=== PATIENT | female | born 1990 | race Caucasian/White ===

== ENCOUNTER 2019-03-26 13:59 | Outpatient (CLI) | payer BC, SELFPAY ==
[2019-03-26 15:06] LABS: Estmated Average Glucose 108; Hemoglobin A1C 5.4 % (4.0-6.0)
== END 2019-03-26 14:00 | disposition home or self-care (01) ==
PROVIDERS: Visit Provider Obstetrics & Gynecology Reproductive Endocrinology
DX: E28.2 Polycystic ovarian syndrome (principal)
CPT/HCPCS: 36415; 83036

== ENCOUNTER 2019-08-28 10:42 | Outpatient (CLI) | payer BC, SELFPAY | END 2019-08-28 10:43 | disposition home or self-care (01) | LOC: LAB 10:46 | PROVIDERS: Visit Provider Obstetrics & Gynecology Reproductive Endocrinology | DX: Z31.83 Encounter for assisted reproductive fertility procedure cycle (principal) | CPT/HCPCS: 36415; 84702 ==

== ENCOUNTER 2019-11-22 09:12 | Outpatient (CLI) | payer BC, SELFPAY | END 2019-11-22 09:13 | disposition home or self-care (01) | LOC: LAB 09:14 | PROVIDERS: Visit Provider Obstetrics & Gynecology Reproductive Endocrinology | DX: Z31.83 Encounter for assisted reproductive fertility procedure cycle (principal) | CPT/HCPCS: 36415; 84702 ==

== ENCOUNTER 2019-11-30 08:17 | Outpatient (CLI) | payer BC, SELFPAY | END 2019-11-30 08:18 | disposition home or self-care (01) | LOC: LAB 08:23 | PROVIDERS: Visit Provider Obstetrics & Gynecology Reproductive Endocrinology | DX: O09.819 Supervision of pregnancy resulting from assisted reproductive technology, unspecified trimester (principal); Z01.83 Encounter for blood typing | CPT/HCPCS: 36415; 84702; 86850; 86900 ==

== ENCOUNTER 2019-12-03 12:08 | Emergency (ER) | payer BC, SELFPAY ==
--- NOTE | 2019-12-03 12:11 | USR_ITS ---
PROCEDURE INFORMATION: Exam: US First Trimester, Transabdominal and US , Transvaginal Exam date and time: 12/03/2019 12:55 PM Age: 29 years old Clinical indication: Pain; Other: Cramping; Gestational age or lmp: Lmp 8-4-20; TECHNIQUE: Imaging protocol: Real-time transabdominal obstetrical ultrasound of the maternal pelvis and a first trimester , less than 14 weeks 0 days, with image documentation. Transvaginal imaging was used for better evaluation of the fetus and adnexa. COMPARISON: US pelvic with transvaginal 08/30/2016 11:53 AM FINDINGS: Gestation: A 6.7 mm gestational sac is identified in the upper endometrial cavity by transvaginal imaging. 3.6 mm yolk sac. No embryo identified. Embryonic/ heart rate: Not identified. BIOMETRY: Gestational age (AUA): 5 weeks 4 days. Mean sac diameter: 5 weeks 4 days. MATERNAL: Uterus: Uterus 8.6 x 4.9 x 5.5 cm transabdominally. No mural mass. Cervix: Small uterine cervical nabothian cysts. Right adnexa: The right ovary is not identified by transabdominal imaging. The right ovary measures 2.5 x 2.6 x 4.3 cm transvaginally. No mass or cyst. No color Doppler abnormality. Left adnexa: The left ovary is not identified by transabdominal imaging. The left ovary measures 2.2 x 3.9 x 2.6 cm transvaginally. No mass or cyst. No color Doppler abnormality. Intraperitoneal space: No intraperitoneal free fluid. US/US OB <=14 wk fetus w transvag IMPRESSION: Single intrauterine gestational sac. No embryo or intrauterine cardiac activity identified likely due to early . One-week follow-up recommended to assess viability.
[2019-12-03 12:13] VITALS: BP 164/101; PULSE 87; RESP 18; TEMP 37.2; O2SAT 100; BMI 42.0
--- NOTE | 2019-12-03 12:15 | ED_ITS ---
HPI - Female Genitourinary General: Chief complaint: Urogenital-Female Stated complaint: 6 weeks preg/bleeding Time Seen by Provider: 12/03/19 12:10 Source: patient Mode of arrival: ambulatory Limitations: no limitations History of Present Illness: HPI Narrative: Trent is a nice 29-year-old female who comes in complaining of cramping and bleeding vaginally. Patient is believed to be about 12 weeks by dates. This has been progressing normally according to her. It is her first . Today though she developed cramping and has had bright red blood with some small clots. The cramping is intermittent. Is unaware of anything that makes her symptoms better or worse. Patient denies any syncope or near syncope. She denies any fevers or chills. Denies any urinary frequency, urgency or dysuria. Patient denies any other vaginal discharge other than the bleeding that started today. She denies any flank pain, back pain or abdominal pain in the upper part of her abdomen. Patient is never been before is never had symptoms like this before. She is unaware of anything that makes her symptoms better or worse. Associated symptoms: Reports abdominal pain and vaginal bleeding; Deny headache(s), nausea or syncope Review of Systems Const: Denies: fever(s), chills, body aches, fatigue, malaise or diaphoresis Eyes: Denies: change in vision, blurry vision, photophobia, eye discomfort, eye discharge, eye redness or yellow eyes ENMT: Denies: throat pain, odynophagia, hoarseness, swelling of lips/tongue, ear or mastoid pain, ear discharge, change in hearing or nasal discharge Card: Denies: chest pain, palpitations, irregular heart rhythm, edema, lightheadedness, syncope, pre-syncope, dyspnea on exertion or orthopnea Resp: Denies: dyspnea, productive cough, non-productive cough, wheezing, hemoptysis or chest congestion GI: Reports: abdominal pain; Denies: nausea, vomiting, hematemesis, coffee ground emesis, heartburn, diarrhea, constipation, GI cramping, hematochezia or melena : Reports: vaginal bleeding; Denies: flank pain, dysuria, urinary frequency, urinary urgency or hematuria Musc: Denies: neck pain, back pain, extremity pain, extremity swelling, joint pain, joint swelling, joint redness, joint warmth or joint stiffness Skin/Breast: Denies: rash, pruritus, erythema, skin pain or skin tenderness Neuro: Denies: headache(s), numbness in extremities, weakness in extremities, sensory changes, lack of coordination, difficulty walking, dizziness, vertigo, confusion, Slurred speech present or seizure-like activity Bill/Lymph: Denies: easy bruising, easy bleeding, petechiae, purpura or enlarged lymph nodes All/Imm: Denies: urticaria, throat swelling, tongue swelling, facial swelling or acute wheezing PFSH ED PFSH: Medical History (Updated 12/03/19 @ 14:25 by Indy Zaman) No pertinent past medical history Surgical History (Updated 12/03/19 @ 12:18 by Indy Zaman) No pertinent past surgical history Social History (Updated 05/09/19 @ 09:48 by Sarah Joshi LPN) Smoking and tobacco status: never smoked Alcohol intake: never Physical Exam Const: COMMON NORMALS: no acute distress, patient oriented x3, no limitations and alert GENERAL APPEARANCE: cooperative HENMT: COMMON NORMALS: normocephalic, atraumatic, external ears normal, EAC's normal and Normal external nose present HEAD & SCALP: normal to inspection, normocephalic and atraumatic FACE & SINUS: normal facial exam and face symmetric NOSE: Normal external nose present and Normal nares present EXTERNAL EAR: Yes external ears normal EXTERNAL AUDITORY CANAL: EAC's normal MOUTH: Normal oral and palatal mucosa present, lip normal and tongue normal Eye: COMMON NORMALS: Equal, round and reactive pupils present and conjunctivae normal GENERAL EYE: appearance normal, both eyes and all related structures ALIGNMENT: Yes alignment normal PERIORBITAL: periorbital findings normal EYELID: eyelids normal CONJUNCTIVA: Yes conjunctivae normal SCLERA: sclerae normal PUPIL: Yes Equal, round and reactive pupils present Neck/C-Spine: COMMON NORMALS: full ROM, no lymphadenopathy, supple, no meningeal signs and no JVD GENERAL: Yes normal visual inspection and Yes trachea midline Chest: COMMONS NORMALS: normal inspection of the chest and normal palpation of entire chest wall Resp: COMMON NORMALS: normal respiratory effort, No retractions, No use of accessory muscles and clear to auscultation bilaterally EFFORT & INSPECTION: Yes able to speak in complete sentences and Yes symmetric chest movement AUSCULTATION: clear to auscultation bilaterally, no crackles, no rales, no rhonchi and no wheezes Cardio: COMMON NORMALS: no JVD, regular rate, regular rhythm, S1 normal heart sound present and S2 normal heart sound present RATE: regular rate RHYTHM: regular rhythm HEART SOUNDS: S1 normal heart sound present, S2 normal heart sound present, no click, no gallops, no murmurs and no rubs GI: COMMON NORMALS: Soft to palpation and No hepatosplenomegaly present PALPATION: Yes Soft to palpation, No Tenderness to palpation present (GI), No Guarding due to palpation present (GI), No Rigid due to palpation, Yes No hepatosplenomegaly present, No Hernia present, No Palpable mass present and No Pulsatile mass present : COMMON NORMALS: Yes no CVA tenderness and Yes normal bimanual exam BLADDER/KIDNEY EXAM: Yes no CVA tenderness EXTERNAL FEMALE EXAM: Yes normal appearance of the urethra and No Hernia present SPECULUM EXAM - VAGINA: Yes vaginal bleeding, No tissue present in vagina, No mass, No swelling and No Vaginal discharge present SPECULUM EXAM - CERVIX: No Cervical os open, Yes Cervical os closed, No Tissue present in the cervical os and Yes Cervical bleeding BIMANUAL EXAM - VAGINA & UTERUS: Yes normal bimanual exam OB/EXTERNAL & SPECULUM: vaginal bleeding; no tissue noted in vagina and Cervical os open Back/Pelvis: COMMON NORMALS: no CVA tenderness, thoracic and lumbar spine normal to inspection, no thoracic nor lumbar tenderness and thoraco-lumbar ROM normal Extremity: COMMON NORMALS: normal to inspection, full ROM, capillary refill normal, no joint enlargement, no clubbing, cyanosis or edema and no calf tenderness Neuro: COMMON NORMALS: patient oriented x3, CN's II-XII intact bilaterally, moves all extremities, no focal motor deficits and no sensory deficits noted SENSORIUM/ORIENTATION: Yes alert MENINGEAL SIGNS: Yes no meningeal signs SPEECH: speech normal Psych: COMMON NORMALS: mental status grossly normal, Normal thought process present, cooperative, normal affect, speech normal and activity/motor behavior normal SPEECH: Yes normal speech THOUGHT PROCESS: Normal thought process present Skin: COMMON NORMALS: no rashes or lesions noted, turgor normal, no jaundice, no petechiae and no mottling GENERAL SKIN EXAM: no rashes or lesions noted and turgor normal Course Vital Signs: Vital signs: Vital Signs Temperature 98.9 F 12/03/19 12:13 Pulse Rate 76 12/03/19 14:49 Respiratory Rate 16 12/03/19 14:49 Blood Pressure 109/67 12/03/19 14:49 Pulse Oximetry 95 12/03/19 14:49 MDM - Female MDM Narrative: Medical decision making narrative: Trent is a very nice 29-year-old female who comes in with vaginal bleeding and cramping. Cervical loss is closed on exam and her ultrasound shows what is believed to be a yolk sac in the uterus. There is no sign of free fluid or ovarian problem. Patient's repeat cath urine is normal. She feels better after IV fluids. Unfortunately until the pole is seen ectopic cannot be definitively ruled out so she will need a repeat quant and ultrasound in 2 days. Patient understands this and agrees to return here if she cannot follow-up with her primary care physician. Patient understands this still could be a threatened miscarriage as well as an ectopic she agrees to return for recheck as previously discussed. Lab Data: Attestation: I reviewed the patient's lab results. Labs: Lab Results 12/03/19 12/03/19 12/03/19 Range/Units 12:13 13:00 13:00 WBC 7.1 (4.0-10.0) 10^3/ uL RBC 4.81 (4.1-5.3) 10^6/u L Hgb 10.1 L (11.5-15.3) g/dL Hct 34.2 L (37.0-47.0) % MCV 71.1 L (81-99) fL MCH 21.0 L (28.0-34.0) pg MCHC 29.5 L (30.0-36.0) g/dL RDW 19.3 H (12.1-15.1) % Plt Count 210 (130-400) 10^3/c mm MPV 9.5 (7.4-10.4) fL Neut % (Auto) 62.4 % Lymph % (Auto) 28.9 % [place] % (Auto) 6.1 % Eos % (Auto) 2.1 % Baso % (Auto) 0.4 % Neut # (Auto) 4.39 (1.8-7.7) 10^3/u L Lymph # (Auto) 2.0 (0.8-4.8) 10^3/u L [place] # (Auto) 0.4 (0.2-0.9) 10^3/u L Eos # (Auto) 0.2 (0.0-0.8) 10^3/u L Baso # (Auto) 0.0 (0.0-0.1) 10^3/u L Nucleated RBC % (a uto) 0 % Nucleated RBCs # 0.0 /100WBC Sodium (136-145) mmol/L Potassium (3.5-5.1) mmol/L Chloride (98-107) mmol/L Carbon Dioxide (22-29) mmol/L Anion Gap (5-19) BUN (6-20) mg/dL Creatinine (0.5-0.9) mg/dL GFR Calculation (90-130) mL/min Glucose (65-115) mg/dL Calculated Osmolal ity (285-295) mOsm/k g Calcium (8.5-10.5) mg/dL Magnesium (1.7-2.3) mg/dL Total Bilirubin (0.15-1.2) mg/dL AST (0-32) U/L ALT (0-33) U/L Alkaline Phosphata se (35-105) IU/L Total Protein (6.6-8.7) g/dL Albumin (3.5-5.2) g/dL Globulin (1.3-4.6) g/dL Ser , Stephen i-Qnt mIU/mL Urine Color Yellow (Yellow) Urine Appearance Hazy A (CLEAR) Urine pH 9 H (5-7) Ur Specific Gravit y 1.015 (1.005-1.030) Urine Protein Trace (Negative) Urine Glucose (UA) Norm (Normal) Urine Ketones 1+ H (Negative) Urine Blood 3+ H (Negative) Urine Nitrate Negative (Negative) Urine Bilirubin Neg (Negative) Prot Sulfosalicyli c Acd Positive (Negative) Urine Urobilinogen 1 H (Negative) mg/dL Ur Leukocyte Valentina ase Negative (Negative) Urine RBC 80-100 H (0-2) /hpf Urine WBC 0-4 H (0-5) /hpf Ur Squamous Epith Cells 10-15 H (0-5) /hpf Amorphous Sediment Not Reportable Urine Bacteria 1+ H (NONE) /hpf Urine Mucus 2+ /hpf Blood Type A Positive Rho(D) Type Positive 12/03/19 12/03/19 Range/Units 13:00 13:34 WBC (4.0-10.0) 10^3/ uL RBC (4.1-5.3) 10^6/u L Hgb (11.5-15.3) g/dL Hct (37.0-47.0) % MCV (81-99) fL MCH (28.0-34.0) pg MCHC (30.0-36.0) g/dL RDW (12.1-15.1) % Plt Count (130-400) 10^3/c mm MPV (7.4-10.4) fL Neut % (Auto) % Lymph % (Auto) % [place] % (Auto) % Eos % (Auto) % Baso % (Auto) % Neut # (Auto) (1.8-7.7) 10^3/u L Lymph # (Auto) (0.8-4.8) 10^3/u L [place] # (Auto) (0.2-0.9) 10^3/u L Eos # (Auto) (0.0-0.8) 10^3/u L Baso # (Auto) (0.0-0.1) 10^3/u L Nucleated RBC % (a uto) % Nucleated RBCs # /100WBC Sodium 138 (136-145) mmol/L Potassium 3.9 (3.5-5.1) mmol/L Chloride 102 (98-107) mmol/L Carbon Dioxide 23 (22-29) mmol/L Anion Gap 16.9 (5-19) BUN 9 (6-20) mg/dL Creatinine 0.7 (0.5-0.9) mg/dL GFR Calculation 98.3 (90-130) mL/min Glucose 119 H (65-115) mg/dL Calculated Osmolal ity 286 (285-295) mOsm/k g Calcium 8.8 (8.5-10.5) mg/dL Magnesium 2.0 (1.7-2.3) mg/dL Total Bilirubin 0.2 (0.15-1.2) mg/dL AST 16 (0-32) U/L ALT 8 (0-33) U/L Alkaline Phosphata se 24 L (35-105) IU/L Total Protein 7.6 (6.6-8.7) g/dL Albumin 4.2 (3.5-5.2) g/dL Globulin 3.4 (1.3-4.6) g/dL Ser , Stephen i-Qnt 4245.00 mIU/mL Urine Color Yellow (Yellow) Urine Appearance Clear (CLEAR) Urine pH 8 H (5-7) Ur Specific Gravit y 1.010 (1.005-1.030) Urine Protein Neg (Negative) Urine Glucose (UA) Norm (Normal) Urine Ketones Negative (Negative) Urine Blood Neg (Negative) Urine Nitrate Negative (Negative) Urine Bilirubin Neg (Negative) Prot Sulfosalicyli c Acd Negative (Negative) Urine Urobilinogen Norm (Negative) mg/dL Ur Leukocyte Valentina ase Negative (Negative) Urine RBC (0-2) /hpf Urine WBC (0-5) /hpf Ur Squamous Epith Cells (0-5) /hpf Amorphous Sediment Urine Bacteria (NONE) /hpf Urine Mucus /hpf Blood Type Rho(D) Type Imaging Data: US OB: Radiologist's impression: [place] [address] Ultrasound Report Signed Patient: Trent Lam Unit #: [id number] : 1990 Age/Sex: 29 / F ADM Date: 12/03/19 Loc: ER Room/Bed: Attending Dr: Ordering Provider/Ordering MD: Indy Zaman DO Date of Service: 12/03/19 Procedure(s): US OB <=14 wk fetus w transvag Accession Number(s): [id number] Report Number: [id number] PROCEDURE INFORMATION: Exam: US First Trimester, Transabdominal and US , Transvaginal Exam date and time: 12/03/2019 12:55 PM Age: 29 years old Clinical indication: Pain; Other: Cramping; Gestational age or lmp: Lmp 8-4-20; TECHNIQUE: Imaging protocol: Real-time transabdominal obstetrical ultrasound of the maternal pelvis and a first trimester , less than 14 weeks 0 days, with image documentation. Transvaginal imaging was used for better evaluation of the fetus and adnexa. COMPARISON: US pelvic with transvaginal 08/30/2016 11:53 AM FINDINGS: Gestation: A 6.7 mm gestational sac is identified in the upper endometrial cavity by transvaginal imaging. 3.6 mm yolk sac. No embryo identified. Embryonic/ heart rate: Not identified. BIOMETRY: Gestational age (AUA): 5 weeks 4 days. Mean sac diameter: 5 weeks 4 days. MATERNAL: Uterus: Uterus 8.6 x 4.9 x 5.5 cm transabdominally. No mural mass. Cervix: Small uterine cervical nabothian cysts. Right adnexa: The right ovary is not identified by transabdominal imaging. The right ovary measures 2.5 x 2.6 x 4.3 cm transvaginally. No mass or cyst. No color Doppler abnormality. Left adnexa: The left ovary is not identified by transabdominal imaging. The left ovary measures 2.2 x 3.9 x 2.6 cm transvaginally. No mass or cyst. No color Doppler abnormality. Intraperitoneal space: No intraperitoneal free fluid. US/US OB <=14 wk fetus w transvag IMPRESSION: Single intrauterine gestational sac. No embryo or intrauterine cardiac activity identified likely due to early . One-week follow-up recommended to assess viability. Dictated By: Jann Gunn MD Signed By: Jann Gunn MD Signed Date/Time: 12/03/19 1320 DD/ 1319 Discharge Plan Discharge Patient Disposition: Home Clinical Impression: Threatened miscarriage in early Condition: Stable Prescriptions: No Action Tylenol Extra Strength 500 mg Tablet 500 - 1,000 mg PO PRN RF: 0 progesterone 50 mg/mL Oil See Rx Instructions .ROUTE .COMPLEX RF: 0 estradiol 2 mg Tablet 2 mg PO BID RF: 0 28 mg iron- 800 mcg Tablet 1 tab PO DAILY RF: 0 Discharge Orders: Discharge Order (Routine); Ordered 12/03/19 Ordered By: Indy Zaman Referrals: Raulito Kamara MD [Primary Care Provider] - 1-3 days Discharge Diet: Advance as tolerated Discharge Activity: Increase activity as tolerated Patient Instructions: Threatened Miscarriage (ED) Activity Restrictions/Additional Instructions: Please return to the ER immediately for any of the signs or symptoms listed on your discharge instruction sheets, worsening/changing of your symptoms, you are not getting better as quickly as expected, or for ANY other cause or concerns. Follow pelvic rest until cleared by your SEALANT MIXER. No sex, no douching, no tampons, nothing intravaginal until instructed further by your OB. Return to the ER for heavier bleeding, you pass out, you nearly pass out, increased pain, or for any other cause for concern. Return to the ER in 2 days to have a repeat hormone count rechecked and possibly a repeat ultrasound. Discharge Date/Time: 12/03/19 14:50 Coding Level of Care Code ED Industrial Aerial Installer for Chg Fwd Exam Comprehensive
[2019-12-03 13:04] VITALS: BP 131/96; PULSE 80; RESP 16; O2SAT 99
[2019-12-03] MEDS: sodium chloride 0.9% 1,000 ML 999 ML IV (13:06)
[2019-12-03 13:07] LABS: Urine Appearance Hazy (CLEAR); Urine Color Yellow (Yellow); pH Urine 9 (5-7)
[2019-12-03 13:09] LABS: Bilirubin Urine Neg (Negative); Blood Urine 3+ (Negative); Glucose Urine UA Norm (Normal); Ketones Urine 1+ (Negative); Nitrate Urine Negative (Negative); Protein Urine Trace (Negative); Specific Gravity, Urine 1.015 (1.005-1.030)
[2019-12-03 13:10] LABS: Leukocyte Esterase Urine Negative (Negative); Sulfosalicylic Acid Urine Positive (Negative); Urobilinogen Urine 1 mg/dL (Negative)
[2019-12-03 13:12] LABS: Add Urine Culture? No; Bacteria Urine 1+ /hpf; Mucus Urine 2+ /hpf; RBC Urine 80-100 /hpf (0-2); WBC Urine 0-4 /hpf (0-5)
[2019-12-03 13:32] LABS: Basophils % 0.4 %; Eosinophils # 0.2 10^3/uL (0.0-0.8); Eosinophils % 2.1 %; Hematocrit 34.2 % (37.0-47.0); Hemoglobin 10.1 g/dL (11.5-15.3); Lymphocytes % 28.9 %; Mean Corpuscular HGB Conc 29.5 g/dL (30.0-36.0); Mean Corpuscular Volume 71.1 fL (81-99); Mean Platelet Volume 9.5 fL (7.4-10.4); Monocytes # 0.4 10^3/uL (0.2-0.9); Monocytes % 6.1 %; Neutrophils # 4.39 10^3/uL (1.8-7.7); Neutrophils % 62.4 %; Nucleated Red Blood Cells % 0 %; Platelet Count 210 10^3/cmm (130-400); Red Blood Count 4.81 10^6/uL (4.1-5.3); Red Cell Distribution Width 19.3 % (12.1-15.1); White Blood Count 7.1 10^3/uL (4.0-10.0)
[2019-12-03 13:44] LABS: Alanine Aminotransferase 8 U/L (0-33); Albumin Level 4.2 g/dL (3.5-5.2); Alkaline Phosphatase 24 IU/L (35-105); Anion Gap 16.9 (5-19); Aspartate Amino Transferase 16 U/L (0-32); Blood Urea Nitrogen 9 mg/dL (6-20); Calcium 8.8 mg/dL (8.5-10.5); Carbon Dioxide 23 mmol/L (22-29); Chloride 102 mmol/L (98-107); Globulin 3.4 g/dL (1.3-4.6); Glomerular Filtration Rate 98.3 mL/min (90-130); Glucose 119 mg/dL (65-115); Osmolality Calculated 286 mOsm/kg (285-295); Potassium 3.9 mmol/L (3.5-5.1); Sodium 138 mmol/L (136-145); Total Bilirubin 0.2 mg/dL (0.15-1.2); Total Protein 7.6 g/dL (6.6-8.7)
[2019-12-03 13:50] LABS: Add Urine Microscopic? NO
[2019-12-03 14:12] LABS: Urine Appearance Clear (CLEAR); Urine Color Yellow (Yellow)
[2019-12-03 14:13] LABS: Bilirubin Urine Neg (Negative); Blood Urine Neg (Negative); Glucose Urine UA Norm (Normal); Ketones Urine Negative (Negative); Leukocyte Esterase Urine Negative (Negative); Nitrate Urine Negative (Negative); Protein Urine Neg (Negative); Sulfosalicylic Acid Urine Negative (Negative); Urobilinogen Urine Norm (Negative); pH Urine 8 (5-7)
[2019-12-03 14:49] VITALS: BP 109/67; PULSE 76; RESP 16; O2SAT 95
== END 2019-12-03 14:50 | disposition home or self-care (01) ==
PROVIDERS: Emergency Provider Emergency Medicine; PCP Family Medicine
DX: O20.0 Threatened abortion (principal); Z3A.01 Less than 8 weeks gestation of pregnancy
CPT/HCPCS: 12345; 76801; 76817; 80053; 81001; 81003; 83735; 84702; 85025; 86900; 87210; 87491; 87591; 96360; 99283; J7030

== ENCOUNTER 2020-01-11 15:54 | Outpatient (CLI) | payer BC, SELFPAY ==
--- NOTE | 2020-01-11 | US_ITS ---
WS: [id number] Transvaginal obstetrical ultrasound. HISTORY: No heart tones. COMPARISON: 12/03/2019. Anteverted uterus. There is a large fluid collection within the endometrial canal. Fluid collection h as increased in size since the prior study of 12/03/2019 but no development of a pole or cardiac activity. Mean sac diameter of near 2.4 cm. This would correspond to a gestation of 7 weeks. No feta l pole or yolk sac. No cardiac activity. There is no free fluid. The RIGHT ovary is poorly visualized but does appear to be enlarged. US/US OB lmt with transvaginal IMPRESSION: 1. No intrauterine crown-rump like or yolk sac. 2. Findings are most consistent with a blighted ovum.
== END 2020-01-11 15:55 | disposition home or self-care (01) ==
LOC: RAD 16:02
PROVIDERS: PCP Family Medicine; Visit Provider Family Medicine
DX: O36.8310 Maternal care for abnormalities of the fetal heart rate or rhythm, first trimester, not applicable or unspecified (principal)
CPT/HCPCS: 76815; 76817

== ENCOUNTER 2020-01-24 13:26 | Outpatient (CLI) | payer BC, SELFPAY ==
[2020-01-24 19:40] LABS: HCG Quantitative 68.46 mIU/mL
== END 2020-01-24 13:27 | disposition home or self-care (01) ==
LOC: LAB 13:30
PROVIDERS: PCP Family Medicine; Visit Provider Obstetrics & Gynecology Reproductive Endocrinology
DX: O26.90 Pregnancy related conditions, unspecified, unspecified trimester (principal)
CPT/HCPCS: 84702

== ENCOUNTER 2020-04-23 12:55 | Outpatient (CLI) | payer BC, SELFPAY | END 2020-04-23 12:56 | disposition home or self-care (01) | LOC: LAB 12:58 | PROVIDERS: PCP Family Medicine; Visit Provider Obstetrics & Gynecology Reproductive Endocrinology | DX: Z32.00 Encounter for pregnancy test, result unknown (principal) | CPT/HCPCS: 36415; 84702 ==

== ENCOUNTER → 2020-05-30 12:09 | Outpatient (BNVA) | payer BC, SELFPAY | PROVIDERS: Visit Provider Emergency Medicine | DX: J02.8 Acute pharyngitis due to other specified organisms (principal); B97.89 Other viral agents as the cause of diseases classified elsewhere; R05 Cough | CPT/HCPCS: 87071; 87880 ==

== ENCOUNTER 2020-08-05 08:07 | Outpatient (CLI) | payer BC, SELFPAY | END 2020-08-05 08:08 | disposition home or self-care (01) | PROVIDERS: Visit Provider Obstetrics & Gynecology Reproductive Endocrinology | DX: Z31.83 Encounter for assisted reproductive fertility procedure cycle (principal) | CPT/HCPCS: 36415; 84702 ==

== ENCOUNTER 2020-08-13 07:39 | Outpatient (CLI) | payer BC, SELFPAY | END 2020-08-13 07:40 | disposition home or self-care (01) | LOC: LAB 07:46 | PROVIDERS: Visit Provider Obstetrics & Gynecology Reproductive Endocrinology | DX: Z31.83 Encounter for assisted reproductive fertility procedure cycle (principal) | CPT/HCPCS: 36415; 84702; 86850; 86900 ==

== ENCOUNTER 2020-08-23 16:27 | Outpatient (CLI) | payer BC, SELFPAY ==
[2020-08-23 17:18] LABS: HCG Quantitative 10.99 mIU/mL
== END 2020-08-23 16:28 | disposition home or self-care (01) ==
PROVIDERS: Visit Provider Obstetrics & Gynecology Reproductive Endocrinology
DX: O26.91 Pregnancy related conditions, unspecified, first trimester (principal)
CPT/HCPCS: 84702

== ENCOUNTER 2020-09-02 10:48 | Outpatient (CLI) | payer BC, SELFPAY | END 2020-09-02 10:49 | disposition home or self-care (01) | PROVIDERS: Visit Provider Obstetrics & Gynecology Reproductive Endocrinology | DX: O26.91 Pregnancy related conditions, unspecified, first trimester (principal) | CPT/HCPCS: 36415; 84702 ==

== ENCOUNTER 2020-09-08 07:42 | Outpatient (CLI) | payer BC, SELFPAY ==
[2020-09-08 09:27] LABS: Thyroid Stimulating Hormone 1.57 uIU/mL (0.27-4.20)
[2020-09-08 10:21] LABS: Estmated Average Glucose 94; Hemoglobin A1C 4.9 % (4.0-6.0)
[2020-09-11 03:58] LABS: Beta 2 Glycoprotein IGA 2.8 U/mL (<20.0); Beta 2 Glycoprotein IGG <2.0 U/mL (<20.0); Beta 2 Glycoprotein IGM <2.0 U/mL (<20.0); CARDIOLIPIN AB (IGM) <2.0 MPL-U/mL (<20.0)
[2020-09-12 05:42] LABS: LA-Interp Not Indicated; PTT-LA 34 sec (<=40); Prothrombin Time 43 sec (<=45)
== END 2020-09-08 07:43 | disposition home or self-care (01) ==
PROVIDERS: Visit Provider Obstetrics & Gynecology Reproductive Endocrinology
DX: N96 Recurrent pregnancy loss (principal)
CPT/HCPCS: 36415; 83036; 84443; 85613; 85730; 86146; 88262

== ENCOUNTER 2020-09-24 17:04 | Outpatient (CLI) | payer BC, SELFPAY | END 2020-09-24 17:05 | disposition home or self-care (01) | PROVIDERS: Visit Provider Obstetrics & Gynecology Reproductive Endocrinology | DX: N96 Recurrent pregnancy loss (principal) | CPT/HCPCS: 36415; 88262 ==

== ENCOUNTER 2020-11-06 10:26 | Outpatient (CLI) | payer BC, SELFPAY ==
[2020-11-06 10:42] VITALS: BP 125/82; PULSE 113; RESP 18; TEMP 37.3; O2SAT 96; BMI 39.4
[2020-11-06 11:25] VITALS: BP 118/73; PULSE 111; RESP 18; TEMP 38.7; O2SAT 98
[2020-11-06 12:16] VITALS: BP 126/82; PULSE 117; RESP 18; TEMP 38.1; O2SAT 99
== END 2020-11-06 10:27 | disposition home or self-care (01) ==
LOC: OPS 10:30
PROVIDERS: PCP Family Medicine; Visit Provider Nurse Practitioner
DX: U07.1 COVID-19 (principal)
CPT/HCPCS: 96365

== ENCOUNTER → 2021-04-06 11:57 | Outpatient (BNVA) | payer BC, SELFPAY | PROVIDERS: Visit Provider Family Medicine | DX: J06.9 Acute upper respiratory infection, unspecified (principal); Z20.822 Contact with and (suspected) exposure to COVID-19 | CPT/HCPCS: 87400; 87635 ==

== ENCOUNTER → 2021-12-21 11:26 | Outpatient (BNVA) | payer BC, SELFPAY | PROVIDERS: Visit Provider Nurse Practitioner | DX: J02.0 Streptococcal pharyngitis | CPT/HCPCS: 87880 ==

== ENCOUNTER → 2023-03-22 10:30 | Outpatient (BNVA) | payer BC, SELFPAY | PROVIDERS: Visit Provider Obstetrics & Gynecology | DX: Z31.41 Encounter for fertility testing (principal) | CPT/HCPCS: 80053; 83036 ==

== ENCOUNTER 2023-07-12 15:26 | Emergency (ER) | payer BC, SELFPAY ==
[2023-07-12 16:10] VITALS: TEMP 36.8; BMI 42.0
[2023-07-12 16:14] VITALS: BP 149/87; RESP 18; O2SAT 97
--- NOTE | 2023-07-12 16:27 | USR_ITS ---
PROCEDURE INFORMATION: Exam: US Pelvis, Transvaginal Exam date and time: 07/12/2023 4:36 PM Age: 32 years old Clinical indication: Pelvic pain; Additional info: L pelvic pain LABS AND CLINICAL REPORTS: Last menstrual period start date: Unknown TECHNIQUE: Imaging protocol: Real-time transvaginal pelvic ultrasound with image documentation. Transvaginal imaging was used for better evaluation of the endometrium, adnexa, and/or cervix. COMPARISON: US OB lmt with transvaginal 01/11/2020 4:30 PM FINDINGS: Uterus: The uterus measures 8.8 x 4.8 x 3.6 cm is unremarkable in appearance. Endometrial stripe measures up to 1.6 cm in thickness. Cervix: Nabothian cyst is identified measuring up to 1.5 x 2.1 cm. Right ovary/adnexa: The right ovary measures 4.5 x 2.0 cm in size and is unremarkable. Left ovary/adnexa: The left ovary measures 3.6 x 2.8 x 2.8 cm and is unremarkable in appearance. Intraperitoneal space: No free fluid in the pelvis. US/US transvaginal [id number] IMPRESSION: Unremarkable uterus and ovaries.
--- NOTE | 2023-07-12 16:28 | ED_ITS ---
Documented by User: HANNAH Brito 07/12/23 16:32 HPI - Abdominal Pain 2 General: Chief Complaint: Abdominal Pain Stated Complaint: left side pelvic pain Time Seen by Provider: 07/12/23 15:55 Source: patient Mode of arrival: ambulatory Limitations: no limitations History of Present Illness: Patient is a 32-year-old female presents to ED today with complaint of left lower abdominal/pelvic pain. Patient states she woke up this morning and noticed pain but it seemed to be bearable. She states she got herself ready for work and drove to [place] and pain seemed to improve however it abruptly returned while she was at work causing her to leave. Patient states she has intermittent nausea and lightheadedness with the discomfort. Patient states she does have PCOS. Her and her are struggling with infertility. They have tried for years and have never had a on their own. They have had IUI and currently undergoing IVF-have had two failed rounds thus far. She is not having any vaginal bleeding. She has not noticed any urinary symptoms. She has chronic intermittent sciatica back pain. MD elicited complaint: abdominal pain (pelvic pain) Pertinent past history: other (PCOS) Onset (ago): hour(s) Pain Consistency: constant Location: LLQ and Pelvis Severity: severe Quality: stabbing and sharp Radiation: none Migration to: no migration Exacerbating factors: other (sitting up) Relieving factors: nothing Associated Symptoms: Reports no associated symptoms and nausea; Denies change in bowel habits, chills, dysuria, fever(s) and vomiting Related Data: Patient : No Review of Systems 2 Const: Denies: fever(s), chills, body aches, fatigue or malaise Card: Denies: chest pain Resp: Denies: dyspnea GI: Reports: abdominal pain and nausea; Denies: vomiting or change in bowel habits : Reports: pelvic pain; Denies: flank pain, difficulty voiding, dysuria, urinary frequency, urinary urgency, urinary hesitancy or vaginal bleeding Musc: Denies: back pain Skin/Breast: Denies: rash PFSH ED 2 PFSH: Medical History No pertinent past medical history Surgical History No pertinent past surgical history Social History Smoking and tobacco/nicotine status: never used tobacco/nicotine Alcohol intake: never Substance/Drug Use: never Physical Exam 2 Const: COMMON NORMALS: patient oriented x3, no limitations, alert and well nourished GENERAL APPEARANCE: cooperative and in distress (appears uncomfortable) NUTRITIONAL APPEARANCE: obese morbidly obese (BMI is 42.1) ORIENTATION/CONSCIOUSNESS: Yes awake, Yes oriented to person, Yes oriented to place and Yes oriented to time Eye: COMMON NORMALS: no scleral icterus Resp: COMMON NORMALS: normal respiratory effort and clear to auscultation bilaterally AUSCULTATION: clear to auscultation bilaterally Cardio: COMMON NORMALS: regular rate and regular rhythm RATE: regular rate RHYTHM: regular rhythm GI: COMMON NORMALS: Normal to inspection, nondistended, normoactive bowel sounds present, Soft to palpation, No hepatosplenomegaly present and no masses INSPECTION: Yes normal to inspection AUSCULTATION: Yes normoactive bowel sounds PALPATION: Yes Soft to palpation, Yes Tenderness to palpation present (GI) (tenderness lower LLQ abdomen vs L pelvis; pain seems to be more pelvic), Yes Guarding due to palpation present (GI), No Rigid due to palpation and Yes No hepatosplenomegaly present : COMMON NORMALS: Yes no CVA tenderness BLADDER/KIDNEY EXAM: Yes no CVA tenderness Back/Pelvis: COMMON NORMALS: no CVA tenderness, thoracic and lumbar spine normal to inspection and no thoracic nor lumbar tenderness Extremity: GENERAL: Yes normal exam except as noted Neuro: GIOVANNI COMA SCALE: document GCS findings Giovanni coma scale eye opening: Spontaneous [place] coma scale verbal response: Orientated [place] coma scale motor response: Obey commands [place] coma scale total score: 15 COMMON NORMALS: patient oriented x3, CN's II-XII intact bilaterally, moves all extremities, no focal motor deficits and no sensory deficits noted S ENSORIUM/ORIENTATION: Yes alert, Yes oriented to person, Yes oriented to place and Yes oriented to time Skin: COMMON NORMALS: no rashes or lesions noted GENERAL SKIN EXAM: no rashes or lesions noted Course 2 Vital Signs: Vital signs: Vital Signs Temperature 98.2 F 07/12/23 16:10 Pulse Rate 84 07/12/23 18:37 Respiratory Rate 18 07/12/23 16:14 Blood Pressure 132/84 07/12/23 18:37 Pulse Oximetry 92 07/12/23 18:37 Oxygen Delivery Me thod Room Air 07/12/23 18:37 MDM - Abdominal Pain Lab Data 07/12/23 16:35 07/12/23 16:35 Labs/Radiology: Radiology Impressions Transvaginal US 07/12/23 16:27 IMPRESSION: Unremarkable uterus and ovaries. Abdomen/Pelvis CT 07/12/23 18:06 IMPRESSION: 1. No acute abdominal or pelvic pathology. 2. Diffuse low-attenuation of the liver compatible with fatty replacement. Laboratory Results WBC 9.07 10^3/uL (3.29-11.43) 07/12/23 16:35 RBC 4.67 10^6/uL (3.85-5.65) 07/12/23 16:35 Hgb 11.50 g/dL (11.27-16.99) 07/12/23 16:35 Hct 36.2 % (36-47) 07/12/23 16:35 MCV 77.5 fl (85-98) L 07/12/23 16:35 MCH 24.6 pg (27-33) L 07/12/23 16:35 MCHC 31.8 g/dL (30-55) 07/12/23 16:35 RDW 16.8 % (12.1-15.1) H 07/12/23 16:35 Plt Count 170 10^3/cmm (157-399) 07/12/23 16:35 MPV 8.6 fL (7.4-10.4) 07/12/23 16:35 Neut % (Auto) 76.4 % 07/12/23 16:35 Lymph % (Auto) 17.9 % 07/12/23 16:35 [place] % (Auto) 4.3 % 07/12/23 16:35 Eos % (Auto) 0.7 % 07/12/23 16:35 Baso % (Auto) 0.3 % 07/12/23 16:35 Neut # (Auto) 6.93 10^3/uL (1.8-7.7) 07/12/23 16:35 Lymph # (Auto) 1.6 10^3/uL (0.8-4.8) 07/12/23 16:35 [place] # (Auto) 0.4 10^3/uL (0.2-0.9) 07/12/23 16:35 Eos # (Auto) 0.1 10^3/uL (0.0-0.8) 07/12/23 16:35 Baso # (Auto) 0.0 10^3/uL (0.0-0.1) 07/12/23 16:35 Nucleated RBC % (auto) 0 % 07/12/23 16:35 Nucleated RBCs # 0.0 /100WBC 07/12/23 16:35 Sodium 141 mmol/L (136-145) 07/12/23 16:35 Potassium 3.9 mmol/L (3.5-5.1) 07/12/23 16:35 Chloride 105 mmol/L (98-107) 07/12/23 16:35 Carbon Dioxide 25 mmol/L (22-29) 07/12/23 16:35 Anion Gap 14.9 (5-19) 07/12/23 16:35 BUN 11 mg/dL (6-20) 07/12/23 16:35 Creatinine 0.6 mg/dL (0.5-0.9) 07/12/23 16:35 GFR Calculation 115.1 mL/min (90-130) 07/12/23 16:35 Glucose 117 mg/dL (65-115) H 07/12/23 16:35 Calculated Osmolality 292 mOsm/kg (285-295) 07/12/23 16:35 Calcium 8.3 mg/dL (8.5-10.5) L 07/12/23 16:35 Total Bilirubin 0.4 mg/dL (0.15-1.2) 07/12/23 16:35 AST 14 U/L (0-32) 07/12/23 16:35 ALT 6 U/L (0-33) 07/12/23 16:35 Alkaline Phosphatase 29 U/L (35-105) L 07/12/23 16:35 Total Protein 7.2 g/dL (6.6-8.7) 07/12/23 16:35 Albumin 4.2 g/dL (3.5-5.2) 07/12/23 16:35 Globulin 3.0 g/dL (1.3-4.6) 07/12/23 16:35 Lipase 22 U/L (13-60) 07/12/23 16:35 HCG, Qual Negative (Negative) 07/12/23 16:35 Urine Color Yellow (Yellow) 07/12/23 17:09 Urine Appearance Sl hazy (CLEAR) A 07/12/23 17:09 Urine pH 6 (5-7) 07/12/23 17:09 Ur Specific [place] 1.020 (1.005-1.030) 07/12/23 17:09 Urine Protein Neg (Negative) 07/12/23 17:09 Urine Glucose (UA) Norm (Normal) 07/12/23 17:09 Urine Ketones 1+ (Negative) H 07/12/23 17:09 Urine Blood 3+ (Negative) H 07/12/23 17:09 Urine Nitrate Negative (Negative) 07/12/23 17:09 Urine Bilirubin Neg (Negative) 07/12/23 17:09 Urine Urobilinogen Norm mg/dL (Negative) 07/12/23 17:09 Ur Leukocyte Esterase Negative (Negative) 07/12/23 17:09 Urine RBC 5-10 /hpf (0-2) H 07/12/23 17:09 Urine WBC 0-4 /hpf (0-5) H 07/12/23 17:09 Ur Squamous Epith Cells 5-10 /hpf (0-5) H 07/12/23 17:09 Amorphous Sediment Not Reportable 07/12/23 17:09 Urine Bacteria 1+ /hpf (NONE) H 07/12/23 17:09 Discharge Plan Discharge Patient Disposition: Home Clinical Impression: Ovarian cyst rupture Condition: Stable Prescriptions: No Action Sprintec (28) 0.25-35 mg-mcg tablet 1 tab PO QAM ferrous sulfate 27 mg iron Tablet 27 mg PO QPM 28 mg iron- 800 mcg Tablet 1 tab PO QPM Discharge Orders: Discharge ED (Routine); Ordered 07/12/23 Ordered By: Blake Bailey Referrals: Azael Oliva MD [Primary Care Provider] - Discharge Diet: Usual diet Discharge Activity: Increase activity as tolerated Patient Instructions: Ruptured Ovarian Cyst (ED) Activity Restrictions/Additional Instructions: Alternate Tylenol and ibuprofen as needed. Follow-up with primary care as needed. If your condition worsens or you develop any new or concerning symptoms, please return for reevaluation. Sign Out Sign Out Data: Patient Sign Out occurred on 07/12/23 at 17:03. Patient's care was discussed, and care was transferred from HANNAH Brito to HANNAH Jane. Coding Level of Care Code ED Director Of Retention for [facility] Fwd Documented by User: HANNAH Jane 07/12/23 19:17 HPI - Abdominal Pain 2 General: Chief Complaint: Abdominal Pain Stated Complaint: left side pelvic pain Time Seen by Provider: 07/12/23 15:55 PFSH ED 2 PFSH: Medical History No pertinent past medical history Surgical History No pertinent past surgical history Social History Smoking and tobacco/nicotine status: never used tobacco/nicotine Alcohol intake: never Substance/Drug Use: never Physical Exam 2 Neuro: GIOVANNI COMA SCALE: document GCS findings Giovanni coma scale total score: 15 Course 2 Vital Signs: Vital signs: Vital Signs Temperature 98.2 F 07/12/23 16:10 Pulse Rate 84 07/12/23 18:37 Respiratory Rate 18 07/12/23 16:14 Blood Pressure 132/84 07/12/23 18:37 Pulse Oximetry 92 07/12/23 18:37 Oxygen Delivery Or thod Room Air 07/12/23 18:37 MDM - Abdominal Pain Medical Decision Making Care of patient transferred to hi by HANNAH Brito. Patient had presented with left lower quadrant pain beginning this morning. She has history of PCOS. On arrival patient's vitals were unremarkable as she was afebrile. Her condition has remained stable throughout her ED course. Laboratory evaluation essentially unremarkable, no elevated white count or other signs of infection. Her beta hCG was negative. Transvaginal ultrasound ordered to identify for any torsion or ectopic, however this was negative. She did have some blood on urinalysis, however no indications of a urinary tract infection. Due to the blood, I ordered an abdomen CT without contrast to evaluate for stone, this was also negative. Upon questioning patient, she does note that she just finished her period. After given Zofran and morphine, she notes her pain is still present however much improved. I informed her of her negative workup, and stated that due to her history of PCOS she likely has pain from a ruptured ovarian cyst. I informed her that she can continue to alternate Tylenol and ibuprofen, and strict return precautions were given such as an increase in her pain or other systemic symptoms. I informed her to follow-up with her primary care provider early this week, to which she agrees. Otherwise she feels safe to go home. Lab Data I reviewed the patient's lab results. 07/12/23 16:35 07/12/23 16:35 Labs/Radiology: Radiology Impressions Transvaginal US 07/12/23 16:27 IMPRESSION: Unremarkable uterus and ovaries. Abdomen/Pelvis CT 07/12/23 18:06 IMPRESSION: 1. No acute abdominal or pelvic pathology. 2. Diffuse low-attenuation of the liver compatible with fatty replacement. Laboratory Results WBC 9.07 10^3/uL (3.29-11.43) 07/12/23 16:35 RBC 4.67 10^6/uL (3.85-5.65) 07/12/23 16:35 Hgb 11.50 g/dL (11.27-16.99) 07/12/23 16:35 Hct 36.2 % (36-47) 07/12/23 16:35 MCV 77.5 fl (85-98) L 07/12/23 16:35 MCH 24.6 pg (27-33) L 07/12/23 16:35 MCHC 31.8 g/dL (30-55) 07/12/23 16:35 RDW 16.8 % (12.1-15.1) H 07/12/23 16:35 Plt Count 170 10^3/cmm (157-399) 07/12/23 16:35 MPV 8.6 fL (7.4-10.4) 07/12/23 16:35 Neut % (Auto) 76.4 % 07/12/23 16:35 Lymph % (Auto) 17.9 % 07/12/23 16:35 [place] % (Auto) 4.3 % 07/12/23 16:35 Eos % (Auto) 0.7 % 07/12/23 16:35 Baso % (Auto) 0.3 % 07/12/23 16:35 Neut # (Auto) 6.93 10^3/uL (1.8-7.7) 07/12/23 16:35 Lymph # (Auto) 1.6 10^3/uL (0.8-4.8) 07/12/23 16:35 [place] # (Auto) 0.4 10^3/uL (0.2-0.9) 07/12/23 16:35 Eos # (Auto) 0.1 10^3/uL (0.0-0.8) 07/12/23 16:35 Baso # (Auto) 0.0 10^3/uL (0.0-0.1) 07/12/23 16:35 Nucleated RBC % (auto) 0 % 07/12/23 16:35 Nucleated RBCs # 0.0 /100WBC 07/12/23 16:35 Sodium 141 mmol/L (136-145) 07/12/23 16:35 Potassium 3.9 mmol/L (3.5-5.1) 07/12/23 16:35 Chloride 105 mmol/L (98-107) 07/12/23 16:35 Carbon Dioxide 25 mmol/L (22-29) 07/12/23 16:35 Anion Gap 14.9 (5-19) 07/12/23 16:35 BUN 11 mg/dL (6-20) 07/12/23 16:35 Creatinine 0.6 mg/dL (0.5-0.9) 07/12/23 16:35 GFR Calculation 115.1 mL/min (90-130) 07/12/23 16:35 Glucose 117 mg/dL (65-115) H 07/12/23 16:35 Calculated Osmolality 292 mOsm/kg (285-295) 07/12/23 16:35 Calcium 8.3 mg/dL (8.5-10.5) L 07/12/23 16:35 Total Bilirubin 0.4 mg/dL (0.15-1.2) 07/12/23 16:35 AST 14 U/L (0-32) 07/12/23 16:35 ALT 6 U/L (0-33) 07/12/23 16:35 Alkaline Phosphatase 29 U/L (35-105) L 07/12/23 16:35 Total Protein 7.2 g/dL (6.6-8.7) 07/12/23 16:35 Albumin 4.2 g/dL (3.5-5.2) 07/12/23 16:35 Globulin 3.0 g/dL (1.3-4.6) 07/12/23 16:35 Lipase 22 U/L (13-60) 07/12/23 16:35 HCG, Qual Negative (Negative) 07/12/23 16:35 Urine Color Yellow (Yellow) 07/12/23 17:09 Urine Appearance Sl hazy (CLEAR) A 07/12/23 17:09 Urine pH 6 (5-7) 07/12/23 17:09 Ur Specific [place] 1.020 (1.005-1.030) 07/12/23 17:09 Urine Protein Neg (Negative) 07/12/23 17:09 Urine Glucose (UA) Norm (Normal) 07/12/23 17:09 Urine Ketones 1+ (Negative) H 07/12/23 17:09 Urine Blood 3+ (Negative) H 07/12/23 17:09 Urine Nitrate Negative (Negative) 07/12/23 17:09 Urine Bilirubin Neg (Negative) 07/12/23 17:09 Urine Urobilinogen Norm mg/dL (Negative) 07/12/23 17:09 Ur Leukocyte Esterase Negative (Negative) 07/12/23 17:09 Urine RBC 5-10 /hpf (0-2) H 07/12/23 17:09 Urine WBC 0-4 /hpf (0-5) H 07/12/23 17:09 Ur Squamous Epith Cells 5-10 /hpf (0-5) H 07/12/23 17:09 Amorphous Sediment Not Reportable 07/12/23 17:09 Urine Bacteria 1+ /hpf (NONE) H 07/12/23 17:09 All radiology interpretation(s) finalized by discharge Discharge Plan Discharge Patient Disposition: Home Clinical Impression: Ovarian cyst rupture Condition: Stable Prescriptions: No Action Sprintec (28) 0.25-35 mg-mcg tablet 1 tab PO QAM ferrous sulfate 27 mg iron Tablet 27 mg PO QPM 28 mg iron- 800 mcg Tablet 1 tab PO QPM Discharge Orders: Discharge ED (Routine); Ordered 07/12/23 Ordered By: Blake Bailey Referrals: Azael Oliva MD [Primary Care Provider] - Discharge Diet: Usual diet Discharge Activity: Increase activity as tolerated Patient Instructions: Ruptured Ovarian Cyst (ED) Activity Restrictions/Additional Instructions: Alternate Tylenol and ibuprofen as needed. Follow-up with primary care as needed. If your condition worsens or you develop any new or concerning symptoms, please return for reevaluation. Sign Out Sign Out Data: Patient Sign Out occurred on 07/12/23 at 17:03. Patient's care was discussed, and care was transferred from HANNAH Brito to HANNAH Jane. Coding Level of Care Code ED Director Of Retention for Nini Mcneal
[2023-07-12] MEDS: ondansetron 2 mg/ML SDV 2 mL 4 MG IVP (16:39)
[2023-07-12] MEDS: morphine 4 mg/mL SDV 1 mL IVP (16:40)
[2023-07-12 16:41] LABS: Basophils % 0.3 %; Eosinophils # 0.1 10^3/uL (0.0-0.8); Eosinophils % 0.7 %; Hematocrit 36.2 % (36-47); Lymphocytes # 1.6 10^3/uL (0.8-4.8); Lymphocytes % 17.9 %; Mean Corpuscular HGB Conc 31.8 g/dL (30-55); Mean Corpuscular Hemoglobin 24.6 pg (27-33); Mean Corpuscular Volume 77.5 fl (85-98); Mean Platelet Volume 8.6 fL (7.4-10.4); Monocytes # 0.4 10^3/uL (0.2-0.9); Monocytes % 4.3 %; Neutrophils # 6.93 10^3/uL (1.8-7.7); Neutrophils % 76.4 %; Nucleated Red Blood Cells % 0 %; Platelet Count 170 10^3/cmm (157-399); Red Blood Count 4.67 10^6/uL (3.85-5.65); Red Cell Distribution Width 16.8 % (12.1-15.1); White Blood Count 9.07 10^3/uL (3.29-11.43)
[2023-07-12 16:56] LABS: HCG, Serum Qual Negative (Negative)
[2023-07-12 16:59] LABS: Alanine Aminotransferase 6 U/L (0-33); Albumin Level 4.2 g/dL (3.5-5.2); Alkaline Phosphatase 29 U/L (35-105); Anion Gap 14.9 (5-19); Aspartate Amino Transferase 14 U/L (0-32); Blood Urea Nitrogen 11 mg/dL (6-20); Calcium 8.3 mg/dL (8.5-10.5); Carbon Dioxide 25 mmol/L (22-29); Chloride 105 mmol/L (98-107); Creatinine Clr Calc Pharmacy 151.1421; Glomerular Filtration Rate 115.1 mL/min (90-130); Glucose 117 mg/dL (65-115); Lipase 22 U/L (13-60); Osmolality Calculated 292 mOsm/kg (285-295); Potassium 3.9 mmol/L (3.5-5.1); Sodium 141 mmol/L (136-145); Total Bilirubin 0.4 mg/dL (0.15-1.2); Total Protein 7.2 g/dL (6.6-8.7)
[2023-07-12 17:13] VITALS: BP 142/82; PULSE 87; O2SAT 93
[2023-07-12 18:01] LABS: Blood Urine 3+ (Negative); Glucose Urine UA Norm (Normal); Ketones Urine 1+ (Negative); Protein Urine Neg (Negative); Urine Appearance SL Hazy (CLEAR); Urine Color Yellow (Yellow); pH Urine 6 (5-7)
[2023-07-12 18:02] LABS: Add Urine Culture? No; Add Urine Microscopic? YES; Bacteria Urine 1+ /hpf; Bilirubin Urine Neg (Negative); Leukocyte Esterase Urine Negative (Negative); Nitrate Urine Negative (Negative); Urobilinogen Urine Norm (Negative); WBC Urine 0-4 /hpf (0-5)
--- NOTE | 2023-07-12 18:06 | CTR_ITS ---
PROCEDURE INFORMATION: Exam: CT Abdomen And Pelvis Without Contrast Exam date and time: 07/12/2023 6:12 PM Age: 32 years old Clinical indication: Abdominal pain; Localized; Left lower quadrant (llq); Prior surgery; Surgery date: 6+ months; Surgery type: Gb/ fertility tx 2 years ago with egg retrieval; Additional info: Llq pain/blood in urine TECHNIQUE: Imaging protocol: Computed tomography of the abdomen and pelvis without contrast. Radiation optimization: All CT scans at this facility use at least one of these dose optimization techniques: automated exposure control; mA and/or kV adjustment per patient size (includes targeted exams where dose is matched to clinical indication); or iterative reconstruction. COMPARISON: US transvaginal [id number] 07/12/2023 4:36 PM RADIATION DOSE METRICS: Total DLP (mGy-cm): 1169.59 FINDINGS: Limitations: Evaluation is limited without the use of IV and oral contrast, particularly for the evaluation of infection and malignancy. Lungs: Mild bibasilar atelectasis/scar. Liver: Diffuse low-attenuation of the liver compatible with fatty replacement. Gallbladder and bile ducts: The gallbladder is not clearly identified. Recommend correlation with surgical history. Pancreas: Pancreas is unremarkable in appearance. No ductal dilation. Spleen: The spleen is normal in size and contour. Adrenal glands: Adrenal glands are unremarkable in appearance. Kidneys and ureters: Kidneys and ureters are unremarkable in appearance. No hydronephrosis. No radio-opaque stone. Stomach and bowel: Stomach and bowel grossly unremarkable. No evidence of bowel obstruction. Appendix: Visualized portions of the appendix are unremarkable. Intraperitoneal space: No ascites. Vasculature: Unremarkable. No abdominal aortic aneurysm. Lymph nodes: No abdominal or pelvic lymphadenopathy. Urinary bladder: Nondistended bladder. Reproductive: Uterus present. Bones/joints: No acute bony abnormality. Soft tissues: Umbilical hernia containing fat. CT/CT kidney stone [id number] IMPRESSION: 1. No acute abdominal or pelvic pathology. 2. Diffuse low-attenuation of the liver compatible with fatty replacement.
[2023-07-12 18:10] VITALS: BP 134/89; PULSE 89; O2SAT 91
[2023-07-12 18:37] VITALS: BP 132/84; PULSE 84; O2SAT 92
[2023-07-12 19:28] VITALS: BP 132/84; PULSE 84; RESP 18; TEMP 36.8; O2SAT 92
== END 2023-07-12 19:30 | disposition home or self-care (01) ==
PROVIDERS: Emergency Medicine; Emergency Provider Physician Assistant; PCP Obstetrics & Gynecology
DX: N83.202 Unspecified ovarian cyst, left side (principal)
CPT/HCPCS: 74176; 76830; 80053; 81001; 83690; 84703; 85025; 96374; 96375; 99285; J2270; J2405

== ENCOUNTER 2023-11-16 09:23 | Outpatient (CLI) | payer BC, SELFPAY ==
[2023-11-16 10:48] LABS: Estradiol 292.4 pg/mL; Progesterone 9.79 ng/mL
== END 2023-11-16 09:24 | disposition home or self-care (01) ==
LOC: LAB 09:24
PROVIDERS: PCP Obstetrics & Gynecology; Visit Provider Obstetrics & Gynecology Reproductive Endocrinology
DX: Z32.00 Encounter for pregnancy test, result unknown (principal)
CPT/HCPCS: 82670; 84144; 84702

== ENCOUNTER 2023-11-23 08:29 | Outpatient (CLI) | payer BC, SELFPAY ==
[2023-11-23 09:31] LABS: Progesterone 28.93 ng/mL
== END 2023-11-23 08:30 | disposition home or self-care (01) ==
LOC: LAB 08:32
PROVIDERS: PCP Obstetrics & Gynecology; Visit Provider Obstetrics & Gynecology Reproductive Endocrinology
DX: Z32.00 Encounter for pregnancy test, result unknown (principal); N92.6 Irregular menstruation, unspecified
CPT/HCPCS: 36415; 84144; 84702

== ENCOUNTER 2023-11-25 07:59 | Outpatient (CLI) | payer BC, SELFPAY | END 2023-11-25 08:00 | disposition home or self-care (01) | LOC: LAB 08:01 | PROVIDERS: PCP Obstetrics & Gynecology; Visit Provider Obstetrics & Gynecology Reproductive Endocrinology | DX: Z32.01 Encounter for pregnancy test, result positive (principal) | CPT/HCPCS: 36415; 84702 ==

== ENCOUNTER → 2023-11-30 07:58 | Outpatient (BNVA) | payer BC, SELFPAY | PROVIDERS: PCP Obstetrics & Gynecology; Visit Provider Nurse Practitioner Women's Health | DX: N92.6 Irregular menstruation, unspecified (principal) | CPT/HCPCS: 81025 ==

== ENCOUNTER → 2023-12-03 10:04 | Outpatient (BNVA) | payer BC, SELFPAY | PROVIDERS: PCP Obstetrics & Gynecology; Visit Provider Nurse Practitioner Women's Health | DX: O20.8 Other hemorrhage in early pregnancy (principal) | CPT/HCPCS: 76817; 84702; 85025 ==

== ENCOUNTER 2023-12-07 14:32 | Outpatient (CLI) | payer BC, SELFPAY | END 2023-12-07 14:33 | disposition home or self-care (01) | LOC: RAD 14:33 | PROVIDERS: PCP Obstetrics & Gynecology; Visit Provider Nurse Practitioner Women's Health | DX: O03.4 Incomplete spontaneous abortion without complication (principal) | CPT/HCPCS: 36415; 84702 ==

== ENCOUNTER → 2023-12-13 08:00 | Outpatient (BNVA) | payer BC, SELFPAY | PROVIDERS: PCP Obstetrics & Gynecology; Visit Provider Nurse Practitioner Women's Health | DX: O03.4 Incomplete spontaneous abortion without complication (principal) | CPT/HCPCS: 84702 ==

== ENCOUNTER 2025-01-17 19:37 | Emergency (ER) | payer BC, SELFPAY ==
[2025-01-17 19:42] VITALS: BP 164/112; PULSE 89; RESP 16; TEMP 37.3; O2SAT 98; BMI 43.0
--- OUTSIDE RECORDS SUMMARY | 2025-01-17 19:46 | XMS_ITS | Clinical Summary ---
Author Organization [facility] 1 [address] [facility] Address [address] [place] [address] Phone Care Team Providers Care Coremaker Supervisor Name Role Phone Adalgisa, Suzi Matt EDDY Primary Care Provider [phone] Allergies Active Allergy Reactions Criticality Noted Date Comments Metformin Abdominal Pain Low 10/18/2024 Medications busPIRone (BUSPAR) 15 mg TabletIndication s:Situational anxiety Take 1 Tablet (15 mg) by mouth 3 times daily as needed for Anxiety. 30 Tablet 3 10/18/2024 Active FERROUS SULFATE ORAL Take 65 mg by mouth daily. Active Active Problems Problem Noted Date Diagnosed Date Situational anxiety 10/27/2024 Benign hypertension 10/27/2024 Absolute anemia 10/20/2024 History of anemia 10/18/2024 Dysmenorrhea 10/18/2024 Primary female infertility 10/15/2021 PCOS (polycystic ovarian syndrome) 05/15/2019 Resolved Problems Problem Noted Date Diagnosed Date Resolved Date Recurrent loss wit hout current 09/17/2023 10/18/2024 Irregular menses 10/15/2021 10/18/2024 Abdominal pain, acute, right upper quadrant 10/15/2021 10/18/2024 BMI 40.0-44.9, adult 10/15/2021 023 Encounters Date Type Department Care Team Description 01/02/2025 External Device Data STL ABSTRACTION Provider, Abstract 11/06/2024 9:45 AM CDT - 11/06/2024 11:59 PM CDT Hospital Encounter [facility] Ultrasound [address] [place] [phone] Edson Cannon FNP Discharge Disposition: Home or Self Care 10/31/2024 External Device Data STL ABSTRACTION Provider, Abstract 10/31/2024 External Device Data STL ABSTRACTION Provider, Abstract 10/27/2024 9:20 AM CDT Office Visit [facility] [address] [place] [address] Edson Cannon FNP Benign hypertension (Primary Dx); Other iron deficiency anemia; Situational anxiety; Dysmenorrhea 10/20/2024 Results Follow-Up [facility] [address] [place] [address] Edson Cannon FNP VITAMIN B12 AND FOLATE, IRON, TIBC, AND PERCENT SATURATION, LIPID PANEL, Additional followed-up results: 5 10/18/2024 3:20 PM CDT Office Visit [facility] [address] [place] [address] Edson Cannon FNP 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); History of anemia; Dysmenorrhea; PCOS (polycystic ovarian syndrome); Elevated blood pressure reading without diagnosis of hypertension; Situational anxiety 10/17/2024 External Device Data STL ABSTRACTION Provider, Abstract from Last 3 Months Social History Tobacco Use Types Packs/Day Years Used Date Smoking Tobacco: Never Smokeless Tobacco: Never Tobacco Cessation:Counseling Given: No Alcohol Use Standard Drinks/Week Comments Not Currently 0 (1 standard drink = 0.6 oz pur e alcohol) Comments No Sex and Gender Information Value Date Recorded Sex Assigned at Not on file Legal Sex Female 11:44 AM CDT Gender Identity Not on file Sexual Orientation Not on file Occupation Industry Job Start Date Job End Date banker Not on file Not on file Not on file Last Filed Vital Signs Vital Sign Reading Time Taken Comments Blood Pressure 158/100 10/27/2024 9:25 AM CDT Pulse 79 10/27/2024 9:24 AM CDT Temperature 36.8 C (98.3 F) 10/27/2024 9:24 AM CDT Respiratory Rate 17 10/27/2024 9:24 AM CDT Oxygen Saturation 95% 10/27/2024 9:24 AM CDT Inhaled Oxygen Concentration - - Weight 106.5 kg (234 lb 12.8 oz) 10/27/2024 9:24 AM CDT Height 157.5 cm (5' 2 ) 10/27/2024 9:24 AM CDT Body Mass Index 42.95 10/27/2024 9:24 AM CDT Plan of Treatment Upcoming Encounters Date Type Department Care Team (Late st Contact Info) Description 03/16/2025 10:40 AM ELECTRIC SIGN WIRER Office Visit [facility] [address] [place] [phone] Dayne De DO [address] [place] [phone] Health Maintenance Due Date Last Done Comments DTAP/TDAP/TD VACCINES (1 - Tdap) 2008 HEPATITIS B VACCINES (1 of 3 - 19+ 3-dose series) 2008 HPV VACCINES (1 - 3-dose SCDM series) 2016 Preventative Visit- Commercial 03/15/2024 01/25/2024 , 01/28/2022 INFLUENZA VACCINE (#1) 2024 PAP SMEAR 01/28/2025 01/28/2022, 01/28/2022 CERVICAL CANCER SCREENING 01/28/2027 HPV/Cotest (21-29) 01/28/2027 01/28/2022, 01/28/2022 HPV/Cotest (30-65) 01/28/2027 01/28/2022, 01/28/2022 Pre-Diabetes and Diabetes Screening 10/19/202710/18, 01/25/2024 Medical Devices Implanted Type Area Box Toe Cutter Device Identifier Shelf Expiration Date Model / Serial / Lot Clip Crtg Med/Lrg 1112 - Sna Implanted:Qty: 1 on 11/14/2021 by Teo aSge DO at [facility] Clip N/A: Abdomen [employer] 08/06/2026 1112 / NA / [id number] Procedures Procedure Name Priority Date/Time Associated Diagnosis Comments US PELVIC TRANSVAGINAL Routine 11/06/2024 10:42 AM CDT History of anemia Dysmenorrhea PCOS (polycystic ovarian syndrome) COMPREHENSIVE METABOLIC PANEL Routine 10/18/2024 4:13 PM CDT 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 Elevated blood pressure reading without diagnosis of hypertension CBC WITH DIFFERENTIAL Routine 10/18/2024 4:13 PM CDT 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 History of anemia Elevated blood pressure reading without diagnosis of hypertension HEMOGLOBIN A1C Routine 10/18/2024 4:13 PM CDT 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 TSH Routine 10/18/2024 4:13 PM CDT 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 Elevated blood pressure reading without diagnosis of hypertension LIPID PANEL Routine 10/18/2024 4:13 PM CDT 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 US PELVIC TRANSVAGINAL, 11/06/2024 10:42 AM Reason For Exam: See Diagnosis. Diagnosis: History of anemia; Dysmenorrhea; PCOS (polycystic ovarian syndrome). COMPARISON: None TECHNIQUE: Multiplanar real-time ultrasonography of the pelvis using alcala-scale imaging, supplemented by color Doppler as needed. FINDINGS: . Uterus: 4.2 x 6.9 x 4.8 cm. The endometrium measures 4.7 mm in thickness. The uterus is anteverted and the myometrium is slightly heterogeneous. No discrete mass. Multiple nabothian cysts are present in the cervix measuring up to 2.2 cm. . Right Ovary: 2.3 x 3.7 x 3.1 cm. The volume measures 13.7 mL and there are greater than 12 peripherally orientated follicles without dominant follicle. . Left Ovary: 2.6 x 3.7 x 3.2 cm. Volume measures 16.3 mL and there are greater than appropriately orientated follicles without dominant follicle. . Bladder: Normal . Peritoneum: No fluid in the cul-de-sac. +++++++++++++++++++++ IMPRESSION: Sonographic features consistent with polycystic ovarian syndrome. Multiple prominent nabothian cysts. Narrative Procedure Note Oliver Dean MD - 11/06/2024 IMPRESSION: Please see below. US PELVIC TRANSVAGINAL, 11/06/2024 10:42 AM Reason For Exam: See Diagnosis. Diagnosis: History of anemia; Dysmenorrhea; PCOS (polycystic ovarian syndrome). COMPARISON: None TECHNIQUE: Multiplanar real-time ultrasonography of the pelvis using alcala-scale imaging, supplemented by color Doppler as needed. FINDINGS: . Uterus: 4.2 x 6.9 x 4.8 cm. The endometrium measures 4.7 mm in thickness. The uterus is anteverted and the myometrium is slightly heterogeneous. No discrete mass. Multiple nabothian cysts are present in the cervix measuring up to 2.2 cm. . Right Ovary: 2.3 x 3.7 x 3.1 cm. The volume measures 13.7 mL and there are greater than 12 peripherally orientated follicles without dominant follicle. . Left Ovary: 2.6 x 3.7 x 3.2 cm. Volume measures 16.3 mL and there are greater than appropriately orientated follicles without dominant follicle. . Bladder: Normal . Peritoneum: No fluid in the cul-de-sac. +++++++++++++++++++++ IMPRESSION: Sonographic features consistent with polycystic ovarian syndrome. Multiple prominent nabothian cysts. Edson Cannon [facility] US ORDERABLES Final Resu lt * VITAMIN B12 AND FOLATE (10/18/2024 4:13 PM CDT) VITAMIN B12 328 200 - 1100 pg/mL [facility] Comment: Please Note: Although the reference range for vitamin B12 is 200-1100 pg/mL, it has been reported that between 5 and 10% of patients with values between 200 and 400 pg/mL may experience neuropsychiatric and hematologic abnormalities due to occult B12 deficiency; less than 1% of patients with values above 400 pg/mL will have symptoms. FOLATE, SERUM 7.5 ng/mL [facility] Comment: Reference Range Low: <3.4 Borderline: 3.4-5.4 Normal: >5.4 Test Performed at: [facility] [address] [place] [id number] Elyse Sood MD Blood 10/18/2024 4:13 PM CDT 10/19/2024 4:31 AM CDT Sorinkarishma Itz Cannon [facility] CHEMISTRY ORDERABLES Final Result [facility] [phone] [facility] [address] * (ABNORMAL) IRON, TIBC, AND PERCENT SATURATION (10/18/2024 4:13 PM CDT) IRON 25(L) 40 - 190 mcg/dL [facility] TIBC 433 250 - 450 mcg/dL (calc) [facility] IRON % SATURATION 6(L) 16 - 45 % (calc) [facility] Comment: Test Performed at: [facility] [address] [place] [address] Elyse Sood MD Blood 10/18/2024 4:13 PM CDT 10/19/2024 4:31 AM CDT Edson Cannon PROJECT CONTROLS SPECIALIST CHEMISTRY ORDERABLES Final Result [facility] [phone] [facility] [address] [address] * (ABNORMAL) CBC WITH DIFFERENTIAL (10/18/2024 4:13 PM CDT) WBC 5.7 3.8 - 10.8 Thousand/u L [facility] RBC 4.71 3.80 - 5.10 Million/uL [facility] HEMOGLOBIN 10.1(L) 11.7 - 15.5 g/dL [facility] HEMATOCRIT 34.7(L) 35.0 - 45.0 % [facility] MCV 73.7(L) 80.0 - 100.0 fL [facility] MCH 21.4(L) 27.0 - 33.0 pg [facility] MCHC 29.1(L) 32.0 - 36.0 g/dL [facility] Comment: For adults, a slight decrease in the calculated MCHC value (in the range of 30 to 32 g/dL) is most likely not clinically significant; however, it should be interpreted with caution in correlation with other red cell parameters and the patient's clinical condition. RDW 16.3(H) 11.0 - 15.0 % [facility] PLATELETS 199 140 - 400 Thousand/u L [facility] MPV 9.3 7.5 - 12.5 fL [facility] NEUTROPHIL ABSOLUTE 3,238 1,500 - 7,800 cells/uL [facility] LYMPHOCYTE ABSOLUTE 2,001 850 - 3,900 cells/uL [facility] MONOCYTE ABSOLUTE 371 200 - 950 cells/uL [facility] EOSINOPHIL ABSOLUTE 63 15 - 500 cells/uL [facility] BASOPHILS ABSOLUTE 29 0 - 200 cells/uL [facility] NEUTROPHIL 56.8 % [facility] LYMPHOCYTES 35.1 % [facility] MONOCYTE 6.5 % [facility] EOSINOPHILS 1.1 % [facility] BASOPHILS 0.5 % [facility] Comment: Test Performed at: [facility] [address] [facility] [place] [address] Elyse Sood MD Blood 10/18/2024 4:13 PM CDT 10/19/2024 4:31 AM CDT [facility] HEMATOLOGY ORDERABLES Asia l Result Performing Organization Address [facility] de Phone Number [facility] [phone] [facility] [id number] [place] [address] * TSH (10/18/2024 4:13 PM CDT) Pathologist [facility] TSH 1.16 mIU/L [facility] Comment: Reference Range > or = 20 Years 0.40-4.50 Ranges First trimester 0.26-2.66 Second trimester 0.55-2.73 Third trimester 0.43-2.91 Test Performed at: [facility] [address] [place] [id number] Elyse Sood MD Blood 10/18/2024 4:13 PM CDT 10/19/2024 4:31 AM CDT [facility] CHEMISTRY ORDERABLES Final Result Performing Organization Address [facility] Co de Phone Number [facility] [phone] [facility] [address] [place] [address] * HEMOGLOBIN A1C (10/18/2024 4:13 PM CDT) Pathologist [facility] HEMOGLOBIN A1C 5.4 <5.7 % [facility] Comment: For the purpose of screening for the presence of diabetes: <5.7% Consistent with the absence of diabetes 5.7-6.4% Consistent with increased risk for diabetes (prediabetes) > or =6.5% Consistent with diabetes This assay result is consistent with a decreased risk of diabetes. Currently, no consensus exists regarding use of hemoglobin A1c for diagnosis of diabetes in children. According to [place] Diabetes Association (ADA) guidelines, hemoglobin A1c <7.0% represents optimal control in non- diabetic patients. Different metrics may apply to specific patient populations. Standards of Medical Care in Diabetes(ADA). ESTIMATED AVERAGE GLUCOSE (MG/DL) 108 mg/dL [facility] ESTIMATED AVERAGE GLUCOSE (MMOL/L) 6.0 mmol/L [facility] Comment: Test Performed at: [facility] [address] [place] [address] Elyse Sood MD Blood 10/18/2024 4:13 PM CDT 10/19/2024 4:31 AM CDT Edson Cannon PROJECT CONTROLS SPECIALIST CHEMISTRY ORDERABLES Final Result [facility] [phone] [facility] [address] [place] [address] * (ABNORMAL) LIPID PANEL (10/18/2024 4:13 PM CDT) CHOLESTEROL 144 <200 mg/dL [facility] HDL 33(L) > OR = 50 mg/dL [facility] TRIGLYCERIDE 137 <150 mg/dL [facility] LDL CALCULATED 87 mg/dL (calc) [facility] Comment: Reference range: <100 Desirable range <100 mg/dL for primary prevention; <70 mg/dL for patients with CHD or diabetic patients with > or = 2 CHD risk factors. LDL-C is now calculated using the Mabel calculation, which is a validated novel method providing better accuracy than the Friedewald equation in the estimation of LDL-C. Vern BANUELOS et al. NICOLA. 2013;310(19): 5573-7857 (http://education.SportEmp.com/faq/NBF871) CHOL/HDL RATIO 4.4 <5.0 (calc) [facility] NON-HDL CHOLESTEROL 111 <130 mg/dL (calc) [facility] Comment: For patients with diabetes plus 1 major ASCVD risk factor, treating to a non-HDL-C goal of <100 mg/dL (LDL-C of <70 mg/dL) is considered a therapeutic option. Test Performed at: [facility] [address] [facility] [place] [address] Elyse Sood MD Blood 10/18/2024 4:13 PM CDT 10/19/2024 4:31 AM CDT us Sorinden[facility] Cannon PROJECT CONTROLS SPECIALIST CHEMISTRY ORDERABLES Final Result [facility] [phone] [facility] [address] [facility] [place] [address] * (ABNORMAL) COMPREHENSIVE METABOLIC PANEL (10/18/2024 4:13 PM CDT) GLUCOSE 91 65 - 99 mg/dL [facility] Comment: Fasting reference interval BUN 8 7 - 25 mg/dL [facility] CREATININE 0.68 0.50 - 0.97 mg/dL [facility] GFR 117 > OR = 60 mL/min/1. 73m2 [facility] BUN/CREAT RATIO SEE NOTE: 6 - 22 (calc) [facility] Comment: Not Reported: BUN and Creatinine are within reference range. SODIUM 143 135 - 146 mmol/L [facility] POTASSIUM 3.7 3.5 - 5.3 mmol/L [facility] CHLORIDE 107 98 - 110 mmol/L [facility] CO2 29 20 - 32 mmol/L [facility] CALCIUM 8.8 8.6 - 10.2 mg/dL [facility] TOTAL PROTEIN 7.1 6.1 - 8.1 g/dL [facility] ALBUMIN 4.3 3.6 - 5.1 g/dL [facility] GLOBULIN 2.8 1.9 - 3.7 g/dL (calc) [facility] ALBUMIN/GLOBULIN RATIO 1.5 1.0 - 2.5 (calc) [facility] BILIRUBIN TOTAL 0.4 0.2 - 1.2 mg/dL [facility] ALKALINE PHOSPHATASE 26(L) 31 - 125 U/L [facility] AST 18 10 - 30 U/L [facility] ALT 10 6 - 29 U/L [facility] Comment: Test Performed at: [facility] [address] [place] [address] Elyse Sood MD Blood 10/18/2024 4:13 PM CDT 10/19/2024 4:31 AM CDT Edson Cannon PROJECT CONTROLS SPECIALIST CHEMISTRY ORDERABLES Final Result [facility] [phone] [facility] [address] * CERV/VAG CYTO SCREEN PAP W/HPV (01/28/2022 9:03 AM ELECTRIC SIGN WIRER) CLINICAL INFORMATION [facility] Comment:None given LAST MENSTRUAL PERIOD [facility] Comment:NONE GIVEN PREV PAP: [facility] Comment:NONE GIVEN PREV BX: [facility] Comment:NONE GIVEN SOURCE [facility] Comment:ENDOCERVIX ADEQUACY: [facility] Comment: Satisfactory for evaluation. Endocervical/transformation zone component present. Age and/or menstrual status not provided PAP INTERP [facility] Comment:Negative for intraep ithelial lesion or malignancy. COMMENT (PAP TEST) [facility] Comment: This Pap test has been evaluated with computer assisted technology. SAND MILL OPERATOR CORE SAND: Yashira [facility] Comment: MVB, CT(ASCP) CT Screening Location: [place] [address] [place] [address] EXPLANATORY NOTE [facility] Comment: EXPLANATORY NOTE: The Pap is a screening test for cervical cancer. It is not a diagnostic test and is subject to false negative and false positive results. It is most reliable when a satisfactory sample, regularly obtained, is submitted with relevant clinical findings and history, and when the Pap result is evaluated along with historic and current clinical information. HPV E6/E7 Not Detected Not Detected [facility] Comment: Methodology: Machine Grainer-Mediated Amplification This assay detects E6/E7 viral messenger RNA (mRNA) from 14 high-risk HPV types (16,18,31,33,35,39,45,51,52,56,58,59,66,68). Cervical sources are required for HPV testing. If a vaginal source from a patient who has had a total hysterectomy with removal of cervix was submitted, please contact the testing laboratory for alternative testing options. For additional information, please refer to http://education.Dispop/faq/YFM597t1 (This link if provided for information/ educational purposes only.) Test Performed at: [facility] [address] [place] [address] Nestor Chapa D.O., MPH SL Genital SWAB OF ENDOCERVIX / Unknown 01/28/2022 9:03 AM ELECTRIC SIGN WIRER 01/29/2022 7:26 AM ELECTRIC SIGN WIRER Parisa HOGANP PATHOLOGY/CYTOLOGY ORDERABLES Final Result [facility] [phone] [facility] [address] [place] [address] from Last 3 Months or Most Recently Relevant to Health Maintenance Insurance [facility] [employer] Advance Directives For more information, please contact: [phone] * Full Code (Latest Code Status on File) Date Activated Date Inactivated Comments 11/14/2021 12:06 PM 11/14/2021 5:20 PM * Full Code Date Activated Date Inactivated Comments 11/14/2021 8:52 AM 11/14/2021 12:06 PM Care Teams Coremaker Supervisor Relationship Specialty Start Date End Date Suzi Diana DO [address] [place] [address] PCP - General Family Practice 10/18/24
--- OUTSIDE RECORDS SUMMARY | 2025-01-17 19:46 | XMS_ITS | Data Portability ---
Author Organization [facility] Gerard Balbuena [facility] Address [address] [address] Assessment No assessment recorded. Plan of Treatment Reminders Order Date Submit Date Provider Last Modified By Organization Details Last Modified Time Details Appointments None recorded. Lab SARS CoV 2 RNA, QL, nasopharynx [address] ([facility]), [address] [place] [address], [phone], 4 16:28:11 rapid strep group A, throat [address] ([facility]), [address] [place] [address], [phone], 4 16:28:12 Referral None recorded. Procedures None recorded. Surgeries None recorded. Imaging None recorded. Medication Orders None recorded. Patient TargetsNo targets recorded. Patient InstructionsNo instructions recorded. Reason for Referral None Reported. Results Created Date Observation Date Name Description Value Unit Range Abnormal Flag Note LastModifiedBy Organization Detail LastModifiedTime 04/04/19 24 04/04/2023 SARS CoV 2 RNA, QL, nasop haryn x COVID positi ve Not Available [facility] ([facility]) [address] [place] [address], [phone], 04/04/2023 16:10:49 04/04/19 24 04/04/2023 rapid strep group A, throa t Strep negati ve Not Available [facility] ([facility]) [address] [place] [address], [phone], 04/04/2023 16:12:08 Result Notes None recorded. Medical Equipment None Reported. Medications Name Sig Start Date Stop Date Status Note LastModified by Organization Details LastModified Time metformin daily for a week, then 2 tabs daily for a week, then 3 tabs daily 014 active Recorded 4 1:10PM by Yovana Xiao MD, Office Visit; Refill Quantity: 60; Tablet; Not Available Not Available Not Available Vitals Date Recorded Body height Body mass index (BMI) Body weight Oxygen saturation Oxygen saturation in Arterial blood by Pulse oximetry Heart rate Respiratory rate Body temperature Systolic And Diastolic Provider Name and Address Organization Details Last Updated DateTime 4 157.48 cm 42.3 kg/m2 315748. 84 g 92 % 92 % 105 /min 16 /min 98.2 [degF] 128/84 mm[Hg] Criselda Mcgregor [facility], [facility] 4 15:51:15 Social History None recorded. Functional Status None recorded. Mental Status None recorded. Family History Nothing Reported Notes:Hypertension, Diabetes Mellitus, Asthma, Cancer Medical History No medical history recorded. Gynecological HistoryNo gynecological history recorded. Obstetrics History GPAL:G 0 P 0 0 0 0 Immunizations Vaccine Type Date Status Note Provider Nam e and Address Organization Details Recorded Time Influenza, split virus, trivalent, preservative 0 completed Not Available [facility] 10/10/2022 02:32:47 Past Encounters Encounter ID Performer Location Encounter Start Date Encounter Closed Date Diagnosis/Indication Diagnosis SNOMED-CT Code Diagnosis ICD10 Code Diagnosis IMO Codes Diagnosis Note [id number] [facility] ([facility]) [address] [place] [address] 04/04/2023 14:54:13 04/04/2023 16:29:17 Sore throat 061727352 J02.9 COVID-19 233281772 U07.1 Increase PO fluids. May use OTC cough and cold medication s prn symptoms. Health Concerns Section Related Observation LastModified by Organization Detai ls LastModified Time None Recorded Concern Status LastModified by Organization Details LastModified Time None Recorded Advance Directives Directive None Recorded Payers Insurance Date Sequence Insurance Name Policy Number Policy Blackmon Covered Member ID Blackmon Member ID Guarantor Name 04/04/2023 1 [place] [id number] Trent Hollingsworth Cody anik [id number] Trent Hollingsworth Adrian k Notes Date Note Type Note Provider Name and Address Organization Details Recorded Time 04/04/2023 text/html Sore ThroatRepor pilar by PatientHPIFor quality, patient reportsdifficulty swallowing,sharp, andburning. For severity, patient reportsworsening. For context, patient reportshistory of strep throat. For associated symptoms, patient reportsfever,headache, anditching throat. For location, patient reportsbilateral. For onset/timing, patient reportsdate of onset 04/03/23andsudden. For duration, patient reportsstarted 1 day(s) ago. For alleviating factors, patient reportsnothing gives relief.ROS as noted in the HPI JAY REGALADO [address] [place], [address], [place] [facility] 04/04/2023 16:28:23 OBGyn Episode No OBEpisode recorded.
--- OUTSIDE RECORDS SUMMARY | 2025-01-17 19:47 | XMS_ITS | Data Portability ---
Author Organization [place] [facility], [facility] Address [address] [address] Care Team Providers Care Operations Professional Name Role Phone MALLIKA COX Primary Care Provider [phone] Assessment No assessment recorded. Plan of Treatment Reminders Order Date Submit Date Provider Last Modified By Organization Details Last Modified Time Details Appointments None recorded. Lab progesteron e, serum 2023 024 [email or web address] [facility], [address] [place], [address], 13:22:19 estradiol, serum 2023 024 JÚNIOR [facility], [address] [place], [address], 12:56:45 Referral None recorded. Procedures None recorded. Surgeries None recorded. Imaging US, transvagina l 2023 024 [email or web address] Not available 13:23:24 Medication Orders None recorded. Patient TargetsNo targets recorded. Patient InstructionsNo instructions recorded. Reason for Referral None Reported. Results Created Date Observation Date Name Description Value Unit Range Abnormal Flag Note LastModifiedBy Organization Detail LastModifiedTime 08/12/19 US, trans vagin al No observ ation record ed. [email or web address] Not Available 2023 12:08:55 08/12/19 24 08/12/2023 imagi ng/di agnos tic resul t No observ ation record ed. [email or web address] Not Available 2023 11:12:14 Result Notes None recorded. Problems No Known Problems Procedures Surgical History Date Name Laterality Status Provider Name and Address Organization Details Recorded Time cholecystectomy completed Moriah Pappas BEHZAD [facility] 08/10/2023 10:41:46 Imaging Results None recorded. Procedure Notes None recorded. Medical Equipment None Reported. Allergies No known drug allergies Medications Name Sig Start Date Stop Date Status Note LastModified by Organization Details LastModified Time BD Regular Bevel Palmetto 27 gauge x 1/2 USE TO INJECT MENOPUR active Not Available Not Available No t Available amoxicillin 500 mg capsule TAKE 2 CAPSULES BY MOUTH NOW THEN 1 CAPSULE 3 TIMES DAILY UNTIL GONE active Not Available Not Available N ot Available triazolam 0.25 mg tablet TAKE 1 TABLET BY MOUTH 1 HOURS PRIOR TO DENTAL APPOINTMENT AND THEN SECOND TABLET AT TIME OF APPOINTMENT NEEDED. active Not Available Not Available N ot Available valacyclovir 1 gram tablet TAKE 1 TABLET BY MOUTH 3 TIMES DAILY FOR 7 DAYS active Not Available Not Available N ot Available hydrocodone 5 mg-acetamino phen 325 mg tablet TAKE 1 TABLET BY MOUTH EVERY 4 TO 6 HOURS NEEDED FOR PAIN active Not Available Not Available No t Available insulin syringe U-100 with needle 1 mL 29 gauge x 7/16 USE TO INJECT LEUPROLIDE FOR TRIGGER active Not Available Not Available Not Available BD Luer-Silvio Syringe 3 mL 23 gauge x 1 1/2 USE TO DRAW UP AND MIX NOVAREL active Not Available Not Available No t Available alcohol swabs USE DIRECTED active Not Available Not Available No t Available leuprolide 1 mg/0.2 mL subcutaneous kit active Not Available Not Available Not Available azithromycin 500 mg tablet active Not Available Not Available Not Available Sprintec (28) 0.25 mg-0.035 mg tablet TAKE 1 TABLET BY MOUTH ONCE DAILY active Not Available Not Available No t Available Sharps Container USE DIRECTED active Not Available Not Available No t Available ganirelix 250 mcg/0.5 mL subcutaneous syringe INJECT 250MCG UNDER THE SKIN DAILY FOR 6 DOSES active Not Available Not Available Not Available BD Regular Bevel Palmetto 25 gauge x 1 1/2 USE TO INJECT NOVAREL active Not Available Not Available No t Available Menopur 75 unit subcutaneous solution INJECT 75 TO 300 UNITS UNDER THE SKIN DAILY DIRECTED BY active Not Available Not Available No t Available Follistim AQ 900 unit/1.08 mL subcutaneous cartridge INJECT 75 TO 300 UNITS UNDER THE SKIN DAILY DIRECTED BY MD active Not Available Not Available No t Available iron active Not Available Not Availa ble Not Available active Not Available Not Avai lable Not Available Follistim AQ 150 units active Not Available N ot Available Not Available Novarel 5,000 unit intramuscula r solution active Not Available Not Available N ot Available Follistim Pen Device subcutaneous pen injector USE DIRECTED active Not Available Not Available No t Available Vitals None Recorded Social History Question Answer Notes LastModified by Organizat ion Details LastModified Time Tobacco Smoking Status Never Smoker [facility] 08/10/2023 10:40:44 What Is Your Level Of Caffeine Consumption? Occasional [email or web address] Information not available 08/10/2023 How Many Children Do You Have? 0 [email or web address] Information not available 08/10/2023 What Is Your Relationship Status? [email or web address] Information not available 08/10/2023 Are You Sexually Active? Yes [email or web address] Information not available 08/10/2023 Sex: Unknown Functional Status Question Answer Note LastModified by Organizat ion Details LastModified Time Do you use any illicit or recreational drugs? No [email or web address] Information not available 08/10/2023 Do you or have you ever used any other forms of tobacco or nicotine? No [email or web address] Information not available 08/10/2023 What is your level of alcohol consumption? Occasional [email or web address] Information not available 08/10/2023 Are you currently employed? 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 Occasional [email or web address] Information not available 08/10/2023 Mental Status None recorded. Family History Relationship Description Onset Age of this Age Resolved Age Notes LastModified by Organization Details LastModified Time Maternal Grandmother Diabetes mellitus [email or web address] Not available 2023 10:39:55 Mother Diabetes mellitus [email or web address] Not available 2023 10:39:56 Medical History Condition Response Breast Cancer N Endometriosis N Ovarian cancer N Diabetes N Blood Clots/DVT N Influenza Vaccine N Hyperlipidemia N Thyroid disease N Heart Disease N Hypertension N Gynecological History Statement/Question Response Last Biopsy Date No HX Prior pap date 2022 Duration of Flow (days) 5 Prior DXA date No HX Prior Mammogram date No HX Prior colonoscopy date N Significant pain with periods? N Gardasil (if <26) N Current Control Method None Frequency of Cycle (Q days) 28 Date of LMP 07/30/2023 Obstetrics History GPAL:G 2 P 0 0 2 0 Type Value Spontaneous 2 Living 0 Total 2 Past Encounters Encounter ID Performer Location Encounter Start Date Encounter Closed Date Diagnosis/Indication Diagnosis SNOMED-CT Code Diagnosis ICD10 Code Diagnosis IMO Codes Diagnosis Note [id number] Radha Barnes APRN, [facility] [address] [place] [address] 08/12/2023 09:55:26 08/12/2023 17:12:25 Infertility study [id number] Z31.41 *tv pelvic us pics reviewedwi ll send results with labs to her outside clinic Health Concerns Section Related Observation LastModified by Organization Detai ls LastModified Time None Recorded Concern Status LastModified by Organization Details LastModified Time None Recorded Advance Directives Directive None Recorded Payers Insurance Date Sequence Insurance Name Policy Number Policy Blackmon Covered Member ID Blackmon Member ID Guarantor Name 08/14/2023 2 [place] [id number] Trent Ross anrodney [id number] Trent ross 08/06/2023 1 *SELF PAY* Ka see Adrian ross Notes Date Note Type Note Provider Name and Address Organization Details Recorded Time 08/12/2023 text/html Trent is here for a scan/lab per her outside clinic. Radha Barnes APRN, [address], [address], [place], [address], [place] [facility] [place] 08/12/2023 11:03:36 OBGyn Episode No OBEpisode recorded.
--- NOTE | 2025-01-17 20:28 | USR_ITS ---
PROCEDURE INFORMATION: Exam: US Duplex Left Lower Extremity Veins, Limited Exam date and time: 01/17/2025 8:58 PM Age: 34 years old Clinical indication: Leg, lower; Pain with spontaneous bruising at the proximal medial aspect of the left calf; Additional info: L calf pain, pain behind knee, R/O dvt TECHNIQUE: Imaging protocol: Real-time duplex ultrasound of the left extremity with 2-D alcala scale, color Doppler flow and spectral waveform analysis including responses to compression and other maneuvers (when performed) with image documentation. Limited exam focused on the left lower extremity veins. COMPARISON: US OB transvaginal [id number] 12/03/2023 10:08 AM FINDINGS: Left deep veins: Unremarkable. The common femoral, femoral, proximal profunda femoral and popliteal veins are patent without thrombus. Normal Doppler waveforms. Normal compressibility and/or augmentation response. Superficial veins: Greater saphenous vein at the saphenofemoral junction is patent without thrombus. Soft tissues: Unremarkable. US/CV venous duplex [facility] [id number] IMPRESSION: No evidence of deep vein thrombosis.
--- NOTE | 2025-01-17 20:42 | W.ED.EXTPRO ---
HPI - Extremity Problem General: Chief complaint: Extremity Problem,Nontraumatic Stated complaint: vein in left leg, hard tender painfull Time Seen by Provider: 01/17/25 20:12 History of Present Illness: 34-year-old female presents with a chief complaint of painful swelling on the medial aspect of her left calf. She states it is a firm, painful and looks like a swollen vein. Patient also states she has pain behind her knee and into her left calf. Patient denies any trauma or injury. She denies any significant lower extremity swelling. She does not have a history of DVT/PE. She states she drives a lot for work and it appears she is on control. She has not had any recent surgeries or immobilizations. She denies shortness of breath, chest pain or lightheadedness. Patient is concerned about a DVT. Related Data Home Medications ?Medication ?Instructions ?Recorded ?Confirmed ferrous sulfate 27 mg iron tablet 27 mg PO QPM 07/12/23 12/03/23 vit no.95-ferrous 1 tab PO QPM 07/12/23 12/03/23 fumarate 28 mg-folic acid 800 mcg tablet () estradiol 1 mg tablet (Estrace) 15 mg PO TID 11/30/23 12/03/23 progesterone 50 mg/mL 1.5 mg IM DAILY 11/30/23 12/03/23 intramuscular oil Allergies Allergy/AdvReac Type Severity Reaction Status Date / Time No Known Allergies Allergy Verified 12/03/23 10:39 [facility] ED PFS: Medical History (Updated 01/17/25 @ 21:48 by Gianna Moss MD) No pertinent past medical history neghx: htn,dm,thyroid,dvt/pe Surgical History Status post laparoscopic procedure Hx of cholecystectomy (~11/2021) Family History Denies family history of Colon cancer Ovarian cancer Prostate cancer Diabetes Heart disease Hyperlipidemia Breast cancer Hypertension Uterine cancer Thyroid disease Stroke Social History Smoking and tobacco/nicotine status: never used tobacco/nicotine Physical Exam Narrative: EXAM NARRATIVE: Vital signs were reviewed. Patient is alert and oriented. Patient is breathing comfortably, no increased WOB or accessory muscle use. SpO2 is above 95% on RA. Patient has clear lungs b/l, no rhonchi, wheezing or crackles. No hypotension or tachycardia. Abdomen is soft, nondistended and nontender. Patient is moving all extremities, no deformity or gross injury. No lower extremity edema or asymmetry. There is some pain w/palpation of the L calf and behind the knee. There is a blue discolored lesion that is firm, painful on the medial aspect of the proximal L lower leg. Course Vital Signs: Vital signs: Vital Signs Temperature 99.2 F 01/17/25 19:42 Pulse Rate 89 01/17/25 19:42 Respiratory Rate 16 01/17/25 19:42 Blood Pressure 164/112 01/17/25 19:42 Pulse Oximetry 98 01/17/25 19:42 Oxygen Delivery Me thod Room Air 01/17/25 19:42 MDM - Extremity (Nontraumatic) Medical Decision Making 34-year-old female presents with a chief complaint of painful and discolored swelling to the medial aspect of her left proximal lower leg that started today. She also reports pain behind her left knee. Differential diagnosis includes, does not want to do, ecchymosis, superficial thrombophlebitis, DVT. On exam she is interocular stable and nontoxic-appearing. She was evaluated with venous duplex of her left lower extremity. Venous Duplex: IMPRESSION: No evidence of deep vein thrombosis. Presentation is most consistent with ecchymosis of the left lower extremity. Patient was counseled on supportive care at home, given return precautions and discharged in stable condition with recommendation for outpatient follow-up with primary care nurse or doctor. Lab Data Radiology Impressions Venous Duplex 01/17/25 20:28 IMPRESSION: No evidence of deep vein thrombosis. All radiology interpretation(s) finalized by discharge Discharge Plan Discharge Patient Disposition: Home Clinical Impression: Traumatic ecchymosis of left lower leg Condition: Stable Prescriptions: No Action progesterone 50 mg/mL oil 1.5 mg IM DAILY estradiol [Estrace] 1 mg tablet 15 mg PO TID ferrous sulfate 27 mg iron Tablet 27 mg PO QPM 28 mg iron- 800 mcg Tablet 1 tab PO QPM Discharge Orders: Discharge ED (Routine); Ordered 01/17/25 Ordered By: Gianna Moss Referrals: Edson Cannon FNP [Primary Care Provider] Patient Instructions: Opioid Safety, Pain Management, Patient Portal & Bruno Instructions, Contusion in Adults (ED) Activity Restrictions/Additional Instructions: Please continue to monitor your condition closely at home. Take Ibuprofen 400mg and Tylenol 500-1000mg every six hours for pain and inflammation. If your condition worsens or additional concerns arise, please return promptly to the emergency department for reassessment. Follow up with your primary care doctor in one week. Print Language: Lithuanian Coding Level of Care Code ED Physical Therapy Aides Teacher for Nini Mcneal
== END 2025-01-17 22:07 | disposition home or self-care (01) ==
PROVIDERS: Emergency Provider Emergency Medicine; PCP Nurse Practitioner Family
DX: S80.12XA Contusion of left lower leg, initial encounter (principal); X58.XXXA Exposure to other specified factors, initial encounter
CPT/HCPCS: 93971; 99284